=== PATIENT | female | born 1985 | race Two or more races ===

== ENCOUNTER 2017-03-02 15:24 | Observation (INO) | payer SELFPAY ==
[~2017-03-02] VITALS: Ht 149.9 cm; Wt 80.2 kg
[2017-03-02] MEDS ORDERED: METRONIDAZOLE PMX 500MG/100ML 100 ML ONE (16:14)
[2017-03-02] MEDS ORDERED: METRONIDAZOLE PMX 500MG/100ML 100 ML IV ONE (16:30)
[2017-03-02] MEDS ORDERED: SODIUM CHLORIDE 0.9% 1,000 ML IV ONE (17:12)
[2017-03-02] MEDS ORDERED: BUPIVACAINE/PF-EPI 0.25% 1:200K ONE (18:49)
[2017-03-02] MEDS ORDERED: KETAMINE 10 MG/ML, 20ML ONE ×2 (19:11→19:30)
[2017-03-02] MEDS ORDERED: MIDAZOLAM 1 MG/ML, 2ML ONE (19:12)
[2017-03-02] MEDS ORDERED: FENTANYL PF 250 MCG/5ML ONE (19:12)
[2017-03-02] MEDS ORDERED: SUCCINYLCHOLINE 20 MG/ML, 10ML ONE (19:30)
[2017-03-02] MEDS ORDERED: DEXAMETHASONE 4 MG/ML, 1ML ONE (19:30)
[2017-03-02] MEDS ORDERED: PROPOFOL 10 MG/ML, 20ML ONE (19:30)
[2017-03-02] MEDS ORDERED: FENTANYL PF 100 MCG/2ML IV PRN (20:30)
[2017-03-02] MEDS ORDERED: PROMETHAZINE 25 MG/ML, 1ML IV PRN (20:30)
[2017-03-02] MEDS ORDERED: MEPERIDINE/PF 25MG/0.5ML IVPush PRN (20:30)
[2017-03-02] MEDS ORDERED: ACETAMINOPHEN 325 MG TABLET PO PRN (20:30)
[2017-03-02] MEDS ORDERED: OXYcodone 5 MG/5 ML ORAL.SOL UDC PO PRN (20:30)
[2017-03-02] MEDS ORDERED: HYDROmorphone 1 MG/ML, 1ML IV PRN (20:30)
[2017-03-02] MEDS ORDERED: ALBUTEROL/IPRATROPIUM 2.5MG/0.5MG, 3 ML NPPB PRN (20:30)
[2017-03-02] MEDS ORDERED: LIDOCAINE 4% TOPICAL SOLUTION 50 ML TP ONE (20:54)
[2017-03-02] MEDS ORDERED: ACETAMINOPHEN 650 MG/20.3 ML UDC ONE ×2 (20:55→21:06)
[2017-03-02] MEDS ORDERED: OXYcodone 5 MG/5 ML ORAL.SOL UDC ONE (20:56)
[2017-03-02] MEDS ORDERED: ACETAMINOPHEN 325 MG/10.15 ML UDC ONE ×2 (20:56→21:06)
[2017-03-02] MEDS ORDERED: PROMETHAZINE 25 MG/ML, 1ML ONE (21:13)
[2017-03-02] MEDS ORDERED: PROMETHAZINE 25 MG/ML, 1ML IM PRN (22:30)
[2017-03-02] MEDS: AMPICILLIN/SULBACTAM 1,500 MG in SODIUM CHLORIDE 0.9% 50 ML IV SCH (22:48)
[2017-03-02 23:53] VITALS: BP 114/68
[2017-03-03 00:55] VITALS: BP 99/62
[2017-03-03] MEDS: HYDROcodone/APAP 7.5-325MG/15ML UDC PO PRN ×3 (01:17→10:32)
[2017-03-03] MEDS: AMPICILLIN/SULBACTAM 1,500 MG in SODIUM CHLORIDE 0.9% 50 ML IV SCH ×2 (04:43→09:32)
[2017-03-03 06:46] VITALS: BP 99/64
[2017-03-03 10:10] VITALS: BP 91/57
[2017-03-03] MEDS ORDERED: HYDR473S51 PO ×3 (10:40→10:43)
[2017-03-03] MEDS ORDERED: AMOX250S6 PO (10:47)
== END 2017-03-03 11:58 | disposition home or self-care (01) ==
LOC: ED 16:16 → INTOOBSV 18:44 → EDIP 18:44 → 4NOR 21:58
PROVIDERS: ADMIT Otolaryngology; ATTEND Otolaryngology
DX: J36 Peritonsillar abscess (principal)
CPT/HCPCS: 42700; 42826; 88304; 96365; 96375; 99285; G0378; J0295; J0330; J1100; J2250; J2550; J2704; J3010; J7030